=== PATIENT | male | born 1955 | race Caucasian/White ===

== ENCOUNTER → 2024-07-31 07:31 | Outpatient (REF) | payer MEDICARE, OTHER, SELFPAY | LOC: MRI 07:31 | PROVIDERS: ATTENDING PHYSICIAN Orthopaedic Surgery; FAMILY PHYSICIAN Family Medicine; REFERRING PHYSICIAN Specialist | DX: M54.12 Radiculopathy, cervical region (principal) | CPT/HCPCS: 72141 ==

== ENCOUNTER 2025-01-04 21:09 | Inpatient (IN) | payer MEDICARE, OTHER, SELFPAY ==
[2025-01-04 17:26] VITALS: BP 121/59
[2025-01-04 17:26] LABS: Glucose - Point of Care 101 mg/dl (70-99)
[2025-01-04 17:59] LABS: % Basophils 0.2 % (0-2); % Eosinophils 1.3 % (0-6); % Immature Granulocytes 0.7 % (0-0.5); % Monocytes 11.2 % (1.7-9.3); % Neutrophils 61.6 % (42.2-75.2); Absolute Eosinophils 0.1 10^3/uL (0-0.7); Absolute Lymphocytes 1.4 10^3/uL (1.2-3.4); Absolute Monocytes 0.6 10^3/uL (0.1-0.6); Absolute Neutrophils 3.4 10^3/uL (1.4-6.5); Hematocrit 39.8 % (39.0-52.0); Hemoglobin 13.1 g/dL (13.0-18.0); Mean Corp Hgb Conc. 32.9 g/dL (33.0-37.0); Mean Corpuscular Hgb 29.4 pg (27.0-31.0); Mean Corpuscular Volume 89.4 fL (80.0-94.0); Mean Platelet Volume 8.9 fL (7.4-10.4); Nucleated Red Blood Cells % 0 % (-); Platelet Count 128 10^3/uL (130-400); Red Blood Cell Count 4.45 10^6/uL (4.70-6.10); Red Cell Dist. Width 16.2 % (11.5-14.5); White Blood Cell Count 5.6 10^3/uL (4.8-10.8)
[2025-01-04 18:06] VITALS: BMI 24.2
[2025-01-04 18:09] LABS: Lactic Acid 1.3 mmol/L (0.7-2.0)
[2025-01-04 18:29] LABS: ALT (SGPT) 33 U/L (0-50); AST (SGOT) 42 U/L (17-59); Albumin 3.2 g/dl (3.5-5.0); Alkaline Phosphatase 74 U/L (38-126); Blood Urea Nitrogen 12 mg/dl (9-20); Calcium 7.3 mg/dl (8.4-10.2); Carbon Dioxide 21 mmol/L (22-30); Chloride 101 mmol/L (98-107); Estimated Creatinine Clearance 100 ml/min; Glucose 105 mg/dl (70-99); Lipase 25 U/L (23-300); Potassium 3.3 mmol/L (3.5-5.1); Sodium 131 mmol/L (135-145); Total Protein 6.2 g/dl (6.3-8.2); eGFR > 60.00
[2025-01-04 18:43] LABS: COVID-19 Antigen Negative (Negative)
[2025-01-04 19:00] VITALS: BP 134/67
--- NOTE | 2025-01-04 19:55 | ED.GENMED ---
History of Present Illness
General
Chief Complaint: Change in Mental Status
Time Seen by Provider: 01/04/25 19:08
History of Present Illness
History of Present Illness:
69-year-old male with history of peripheral artery disease, lupus, hypertension, hyperlipidemia presenting for fatigue and cough. Patient arrives with who reports since yesterday he has been fatigued, somnolent. He has been refusing to eat.
Patient is nonambulatory, has bilateral rqpiu-[id number]-akzk amputations. has been trying to get him to eat and drink, however he has not been able to do so. He is falling asleep. Reports generalized fevers and chills. Also reports cough. No
report of any vomiting. Denies any changes in stool. Denies any abdominal pain. He did not have his flu vaccine this year. Denies any additional acute medical complaints
Past History
Past History
ED Past Medical History: CAD, HTN, Hypercholesterolemia and Other (Lupus, PBH)
ED Past Surgical History: Cardiac (stents) and Orthopedic (RBKA)
Social History
Tobacco: Non-smoker
Alcohol: None
Drug: None
Personal:
Living: with family
Employment: Not employed
Family History
Family History: Other (n/c)
Phy Exam
Physical Exam
Physical Exam:
General: Mild dryness to mucous membranes, no acute distress
HEENT: protecting airway
Neck: appears supple
CV: Tachycardia, regular rhythm, no evidence of cyanosis
Resp: No accessory muscle use, no increased work of breathing, rhonchorous breath sounds bilaterally
Abd: No distention
Extremities: Bilateral chronic lenvw-glf-ecee amputations
Neuro: alert, no focal neurologic deficit
: deferred
Rectal: deferred
Psych: Normal affect
Skin: Intact
Course
Orders/Labs/Results
Orders:
Orders
01/04/25 17:28
Electrocardiogram (*1) Urgent
Reason for Study: Fatigue / Weakness
CR Chest - 2 Views Urgent
Comment:
Reason For Exam: cough
01/04/25 17:29
EKG- Treatment ONCE
01/04/25 17:44
COVID-19 Antigen Urgent
Source: Nasal Swab
Complete Blood Count/With Diff Urgent
Comprehensive Metabolic Panel Urgent
Lactic Acid Urgent
Lipase Urgent
Influenza A+B Rapid Molecular Urgent
GUILLERMINA Source: Nasal Swab
Specimen Description:
01/04/25 19:40
0.9% Sodium Chloride 1000 ml [Nss] 1,000 ml IV BOLUS
Abnormal Lab Results
01/04/25 01/04/25
17:24 17:44
RBC 4.45 L 10^6/uL
(4.70-6.10)
MCHC 32.9 L g/dL
(33.0-37.0)
RDW 16.2 H %
(11.5-14.5)
Plt Count 128 L 10^3/uL
(130-400)
Immature Gran % 0.7 H %
(0-0.5)
Monocytes % 11.2 H %
(1.7-9.3)
Sodium 131 L mmol/L
(135-145)
Potassium 3.3 L mmol/L
(3.5-5.1)
Carbon Dioxide 21 L mmol/L
(22-30)
Creatinine 0.6 L mg/dL
(0.7-1.3)
Glucose 105 H mg/dl
(70-99)
Calcium 7.3 L mg/dl
(8.4-10.2)
Total Protein 6.2 L g/dl
(6.3-8.2)
Albumin 3.2 L g/dl
(3.5-5.0)
POC Glucose 101 H mg/dl
(70-99)
01/04/25 17:44
01/04/25 17:44
Vital Signs
Initial and Last Documented VS:
Initial Vital Signs
Temp Pulse Resp BP Pulse Ox
98.2 F 91 16 121/59 98
01/04/25 17:26 01/04/25 17:26 01/04/25 17:26 01/04/25 17:26 01/04/25 17:26
Last Documented Vital Signs
Temp Pulse Resp BP Pulse Ox
98.2 F 101 18 134/67 94
01/04/25 17:26 01/04/25 19:15 01/04/25 19:26 01/04/25 19:00 01/04/25 18:45
MDM/Problems Addressed
MDM/Problems Addressed:
69-year-old male with history of lupus, hypertension, hyperlipidemia presenting to the emergency department for cough, fever, fatigue. Vital signs on arrival are normal.
On exam, patient is in no acute distress, however is very sleepy. On pulmonary exam, no significant respiratory distress, however does have rhonchorous breath sounds bilaterally. Suspect likely pneumonia versus viral syndrome such as influenza.
Patient had screening laboratory analysis and viral swabs prior to my assessment, positive for influenza, again which is consistent with symptoms. Patient is currently protecting airway, not requiring any oxygen support. However, patient is very
fatigued, sleepy. at bedside notes that he gets dehydrated very quickly. Will start an IV fluids. She has concerns about him going home given his present state and mental status. For this reason we will plan to admit for continued
supportive therapy. Patient is unsure of whether or not he wants Tamiflu. Pending x-ray imaging of the chest.
20:00 - Chest x-ray without signs of pneumonia. Again plan for admission for continued monitoring and supportive therapy
*Critical Care Note
Total Time (30-74mins, 75-104mins- exclusive of procedures): Not Applicable
ED Attending Note
-
Portions of this chart may have been created with voice recognition software.� Occasional wrong word or��sound alike� substitutions may have occurred due to the inherent limitations of voice recognition software.
Discharge Plan
Departure
Prescriptions:
No Action
tamsulosin 0.4 MG capsule
0.8 mg PO HS
hydroxychloroquine 200 MG tablet
400 mg PO HS
finasteride 5 MG tablet
5 mg PO HS
zolpidem 5 MG tablet
5 mg PO HS
Patient Comments:
06/01/2023: last filled 05/25/23, 30 tabs for 30 days from [id number]
atorvastatin 80 mg tablet
80 mg PO DAILY
alendronate 70 MG tablet
70 mg PO SCANLON
morphine 30 mg tablet extended release
30 mg PO Q12H
spironolactone 25 mg tablet
25 mg PO DAILY
acyclovir 400 mg tablet
400 mg PO BID
prednisolone acetate 1 % drops,suspension
1 drp RIGHT EYE DAILY
prednisone 10 mg Tablet
15 mg PO DAILY
bisacodyl [Dulcolax (bisacodyl)] 10 mg Suppository
10 mg MN DAILYPRN PRN (Reason: if no bm aftr mom)
Rx Instructions:
06/21/2023, administer 8 hr after mom if no BM
topiramate 100 mg Tablet
75 mg PO HS
Artificial Tears (PF) 0.1-0.3 % [place]
1 drp BOTH EYES TID
naloxone 4 mg/actuation [place],Non-Aerosol
4 mg INTRANASAL Q3M PRN (Reason: opioid overdose)
oxycodone 10 mg tablet
10 mg PO Q6H
gabapentin
1,800 mg PO DAILY
gabapentin
1,200 mg PO HS
warfarin [Coumadin] 2 mg Tablet
2 mg PO HS
enoxaparin [Lovenox] 30 mg/0.3 mL Syringe
SC Q12H
Patient Comments:
Patient started this medication on 09/16/23 in the morning as directed by the faculty member.
Interventions
Interventions:
*Risk Screen - Suicide Last Done: 01/04/25 18:06
*General Assessment Last Done: 01/04/25 18:06
*Neglect/Abuse Screening Last Done: 01/04/25 18:06
*ED COVID-19 Vaccine History Last Done: 01/04/25 18:06
ED- Neurological Assessment Last Done: 01/04/25 19:25
ED- Pulmonary Assessment Last Done: 01/04/25 19:25
Discharge Date and Time
Print Language: BERMUDIAN
[2025-01-04] MEDS: NSS 1000 IV (20:08)
[2025-01-04 20:10] VITALS: BP 118/63
--- NOTE | 2025-01-04 20:19 | HPS.HSE ---
Family Physician
-
Family Physician: Paula White
Chief Complaint
-
Lethargy
History of Present Illness
Patient is a 69 y/o male past medical history of CAD, PAD, A-Fib, HTN, Lupus on chronic prednisone and Chronic Pain Syndrome with opioid dependence who presents with lethargy. History is obtained from patient's at the bedside. Yesterday
patient was very tired which is not his usual. Today he refused to eat, and was having a hard time getting his to drink fluids prompting her to bring him to the emergency department for evaluation. In the emegency department he developed
fever, and subsequently tested positive for Influenza Type A.
Medical History
Past Medical History
Past Medical History: Reports Other
Additional Past Medical History:
Coronary Artery Disease s/p Cardiac Stent
Peripheral Arterial Disease s/p Bilateral AKAs
Paroxysmal Atrial Fibrillation
Essential Hypertension
Hyperlipidemia
Lupus
Chronic Pain Syndrome with Opioid Dependence
BPH
Past Surgical History: Reports Other
Additional Past Surgical History:
Cardiac Stents
Bilateral AKAs
Lumbar Fusion
Social History
Tobacco: Former Smoker (Quit about 30 years ago)
Personal:
Living: With Family
Family History
Family History: Not pertinent
Allergies / Home Medications
Allergies reflects when Allergies were last updated in [facility].
Home Medications with original date entered in [facility]
Allergy/Medication List:
Allergies
Allergy/AdvReac Type Severity Reaction Status Date / Time
No Known Allergies Allergy Verified 01/04/25 17:28
Home Medications
finasteride 5 mg tablet 5 mg PO HS Urinary issue 05/02/22
hydroxychloroquine 200 mg tablet 200 mg PO HS Lupus 05/02/22
tamsulosin 0.4 mg capsule 0.8 mg PO HS Urinary issue 05/02/22
zolpidem 5 mg tablet 5 mg PO HS Sleep 07/31/22
alendronate 70 mg tablet 70 mg PO SCANLON osteoporosis 12/20/22
atorvastatin 80 mg tablet 80 mg PO DAILY High cholesterol 12/20/22
morphine 30 mg tablet,extended release 30 mg PO Q12H Pain 12/20/22
spironolactone 25 mg tablet 25 mg PO DAILY Blood pressure 03/04/23
oxycodone 10 mg tablet 10 mg PO Q4H 06/21/23
gabapentin 600 mg tablet 1,200 mg PO HS 09/20/23
gabapentin 600 mg tablet 1,800 mg PO DAILY 09/20/23
warfarin 2 mg tablet 2 mg PO HS 09/20/23
prednisone 5 mg tablet 15 mg PO DAILY 01/04/25
topiramate 50 mg tablet 75 mg PO HS 01/04/25
Review of Systems
-
Unable to obtain full review of systems at this time due to: Acuity
Physical Exam
Vital Signs
Vital Signs
Temp Pulse Resp BP Pulse Ox
98.2 F 101 18 134/67 94
01/04/25 17:26 01/04/25 19:15 01/04/25 19:26 01/04/25 19:00 01/04/25 18:45
Physical Exam
General: Well Developed and Well Nourished
HEENT: Anicteric and Other (Face mask covering nose and mouth)
Respiratory: Clear and Non Labored Respirations
Cardiac: S1/S2 and Regular Rhythm
GI: Soft and Non Tender
Rectal: Deferred by Provider
Musculoskeletal: No Clubbing, No Cyanosis and Other (Bilateral AKAs)
Skin: Warm and Dry
Neuro: Other (Lethargic; Opens eyes to name but unable to participate in neurologic evaluation)
Laboratory Results
-
01/04/25 17:44
01/04/25 17:44
Laboratory Results
Lactic Acid 1.3 mmol/L (0.7-2.0) 01/04/25 17:44
Total Bilirubin 1.0 mg/dl (0.2-1.3) 01/04/25 17:44
AST 42 U/L (17-59) 01/04/25 17:44
ALT 33 U/L (0-50) 01/04/25 17:44
Alkaline Phosphatase 74 U/L (38-126) 01/04/25 17:44
Lipase 25 U/L (23-300) 01/04/25 17:44
Data Reviewed
-
Lab Data: Labs Reviewed by me
Impression/Plan
-
Sepsis secondary to Influenza Type A
-Continue Tamiflu
-Add Robitussin DM PRN cough
-Add DuoNeb PRN shortness of breath / wheeze
Hyponatremia / Hypokalemia
-Continue IVFs
-Recheck Labs in AM
Paroxysmal Atrial Fibrillation
-Check INR
-Continue Coumadin
Essential Hypertension
-Continue spironolactone
Hyperlipidemia
-Continue atorvastatin
Chronic Pain Syndrome with Opioid Dependence
-Plan to resume morphine tomorrow but hold for sedation
-Continue gabapentin, and topiramate
Lupus
-Continue hydroxychloroquine
-Continue Prednisone - Consider stress steroids if patient develops hypotension
BPH
-Continue finasteride
Hx Coronary Artery Disease s/p Cardiac Stent
Hx Peripheral Arterial Disease s/p Bilateral AKAs
DVT proph: Coumadin
Code Status: Full Code
[2025-01-04 21:00] VITALS: BP 109/50
--- NOTE | 2025-01-04 21:34 | W.PN.UPDATE ---
Update Note
Progress Note Update
Patient seen in conjunction with ROMAN. I agree with her findings on history and physical. I concur with the assessment and plan.
This is a 69-year-old with past medical history of lupus on prednisone and Plaquenil, history of BKA with chronic pain on high-dose standing gabapentin and opioids, BPH, afib, HTN, presents to the emergency department with weakness.
Patient quite weak and unable to provide much history. According to spouse he was in usual state of health up until yesterday morning. He woke up and he had nasal congestion and a cough. No fevers. Is then developed weakness and decreased
appetite. Spouse reported that he has not had anything to eat today. Denies any urinary symptoms. Denies any nausea or vomiting. Denies any diarrhea. No known sick contacts. Patient denies any urinary retention. He reports chronic lower
back/sacral pain associated with the development ulcer. There has been no new rash, joint swelling or decreased range of motion.
In the emergency department he had a temp 100.4, blood pressure was 134/67 with a pulse of 101. ECG showed a normal sinus rhythm at 92. Chest x-ray shows no clear acute infiltrates but cannot rule out atelectasis in the lower lobes. CBC was
unremarkable. Electrolytes are notable for a sodium of 131 potassium of 3.3. BUN and creatinine were within the normal range. Influenza was positive. COVID was negative.
Assessment and plan
Patient with acute influenza A infection with lethargy weakness and no significant respiratory issues at this time except for some URI symptoms. The lethargy is compounded by is use of high dose opioids and gabapentin. He is arousable and responds
somewhat appropriately but mostly complains of pain in his sacral region as well as his wrist where the IV was placed.
- admit to med/surg
- start tamiflu 75 q 12, no indication for abx at this time
- iv fluids, supportive measures with antipyretics, antiemetics and pain control
- hold standing morphine and gabapentin tonight and restart in am
- put oxycodone as prn for now
- continue topiramate
- wound consult
- continue coumadin for afib
Code status - full code
[2025-01-04] MEDS: TYLENOL 650 MG PO (21:40)
[2025-01-04] MEDS: TAMIFLU 75 MG PO (21:40)
[2025-01-04 22:00] VITALS: BP 105/46
[2025-01-04 22:10] LABS: INR 1.85; PT 21.5 Sec (11.4-14.6)
[2025-01-04 22:48] VITALS: BP 112/67; BMI 23.5
[2025-01-04 22:58] VITALS: BMI 23.5
[2025-01-04] MEDS: NSS with KCL 40 MEQ 1000 IV (23:10)
[2025-01-04] MEDS: PLAQUENIL 200 MG PO (23:24)
[2025-01-04] MEDS: PROSCAR 5 MG PO (23:24)
[2025-01-04] MEDS: FLOMAX 0.8 MG PO (23:24)
[2025-01-04] MEDS: TOPAMAX 75 MG PO (23:42)
[2025-01-05] VITALS (15 sets, daily range): BP systolic 88–153; BP diastolic 33–131
--- NOTE | 2025-01-05 00:30 | PTCARENOTE ---
Received pt from previous shift visiting with family. Pt AAOxx3, but drowsy. Pt Afib RVR on the monitor, HR 160's. SpO2 98% on 2L O2 NC, tachypneic/labored. Abd round/obese/firm, severely hypoactive bowel sounds. Pt then began vomiting brown liquid,
PRN Zofran given with positive effect, see MAR. Pt continued c/o 06/30 abd pain and anxiety despite previous doses of PRN Ativan/Morphine, next PRN doses not yet due. D/w covering ARCHITECTURAL REPRESENTATIVE, morphine gtt ordered to begin on step 2. Morphine gtt initiated
with positive effect, see flowsheet. Pt incontinent of urine and a smear of stool, hygiene performed. Pt currently resting comfortably, at the bedside.
--- NOTE | 2025-01-05 00:53 | PTCARENOTE ---
Patient arrived to unit from ED via stretcher. Patient pulled over from stretcher to bed in 319-1 on . B/L AKA noted, uses w/c at baseline. Patient AAOx3, drowsy. at bedside to help answer admission questions. Maintained on droplet
precautions for +flu A. Patient and requesting HS dose of Topamax and Gabapentin. ROMAN Deluna notified. New order rec'd for Topamax. See MAR for administration. Oriented to unit. Call copeland within reach. Plan of care ongoing.
[2025-01-05] MEDS: ZOFRAN 4 MG IV ×3 (02:51→22:14)
[2025-01-05] MEDS: LOPRESSOR 5 MG IV (03:54)
[2025-01-05] MEDS: LOPRESSOR 2.5 MG IV (05:31)
[2025-01-05] MEDS: CARDIZEM 10 MG IV ×2 (06:46→13:00)
[2025-01-05] MEDS: CARDIZEM 125 IV (06:52)
--- NOTE | 2025-01-05 06:56 | W.PN.UPDATE ---
Addendum entered and electronically signed by ROMAN Avina 01/05/25 07:09:
Update: Inidial TT received approx 3:30 am regarding pt going into afib w/rvr.
Original Note:
Update Note
Progress Note Update
Around 2:30 am, patient went into afib w/RVR, HR initially 120-130's, up to 170's. Ordered Metoprolol 5 mg IV x 1, HR did go down to 80-100's but was not sustained and increased back to 130-140's, then to 170's. BP soft, gave another dose of
metoprolol. Patient HR increased again back to 170's to 190's. Patient unsure who he sees for cardiology. Patient ordered Cardizem 10 mg IV x 1 and started on Cardizem gtt. Patient to be transferred to IMU, nursing supervisor putty and caluking notified and provided
bed assignment for IMU. RN updated on plan.
--- NOTE | 2025-01-05 07:52 | PTCARENOTE ---
Around 03:20 telemetry alarmed, patient in a-fib with HR sustaining 130s-150s. BP 125/72, afebrile, asymptomatic. ROMAN Deluna notified. EKG obtained and confirmed a-fib RVR. New order rec'd for 5 mg IV lopressor. See MAR for administration.
Patient's HR sustaining between 80s-100s. HR increased again around 05:00 sustaining between 130s-140s. Pt. continues to be asymptomatic and afebrile. BP 106/50. ROMAN Deluna notified. New order rec'd for 2.5 mg IV lopressor. Administered at
05:31. Soon after administration, HR 110's. Around 0605 HR [id number]'s-150's. ROMAN Deluna notified. New order for cardizem gtt and transfer to IMU. Report given to Edwin. Patient transferred with all belongings to IMU.
--- NOTE | 2025-01-05 08:14 | PTCARENOTE ---
Pt from 3 west hr 168-188 rr 30-45 3l O2 pox 88. Cardizem increased now at 15 mg hr 140 -167 O2 to 6 l pox at 93 % lungs are coarse with crackles. Seen by by DR pennington. Prt inont B/B
--- NOTE | 2025-01-05 08:14 | CON.CAR ---
Consultation
Consultation Request
Date/Time Consultation Requested: 01/05/2025 6: 55
Date/Time Consultation Performed: 01/05/2025 7: 45
Requesting Provider: Newton
Performing Provider: Elizabeth
Reason for Consultation: Atrial fibrillation
Medical History
-
Chief Complaint: Weakness and not eating
History of Present Illness:
Jenny has a history of OM1 and RCA stent, status post CABG with SILVA to LAD, aortic stenosis, peripheral vascular disease status post bilateral amputations, hypertension, lupus, hyperlipidemia, chronic pain syndrome with opioid dependence, BPH. He
presented with cough, lethargy and not eating. He was found to have influenza A. He went into rapid A-fib and cardiology was consulted. At the present time he is a poor historian unable to give history. History is obtained from his . At
baseline he is fairly active despite his bilateral amputations without chest pain or shortness of breath. He last saw his spooler operator automatic Dr. Rosales in 2022 and was scheduled to have an echocardiogram and stress test which still have not been done.
Reportedly he went to have a stress test but what they wanted that to be done at the hospital so was canceled. He remains in A-fib with rapid rate despite IV Cardizem.
Past Medical History
Past Medical History: Other (As above)
Past Surgical History: Other (Status post CABG, lumbar fusion)
Social History
Tobacco: Former Smoker
Alcohol: None
Drug: None
Personal:
Living: With Family
Employment: Retired
Family History
Family History: Other (Father had bypass surgery, pacer, lupus, mother had hypertension)
Allergies / Home Medications
Allergy/AdvReac Type Severity Reaction Status Date / Time
No Known Allergies Allergy Verified 01/04/25 17:28
�Medication �Instructions �Recorded �Confirmed �Type
finasteride 5 mg tablet 5 mg PO HS Urinary issue 05/02/22 01/04/25 History
hydroxychloroquine 200 mg tablet 200 mg PO HS Lupus 05/02/22 01/04/25 History
tamsulosin 0.4 mg capsule 0.8 mg PO HS Urinary issue 05/02/22 01/04/25 History
zolpidem 5 mg tablet 5 mg PO HS Sleep 07/31/22 01/04/25 History
alendronate 70 mg tablet 70 mg PO SCANLON osteoporosis 12/20/22 01/04/25 History
atorvastatin 80 mg tablet 80 mg PO DAILY High cholesterol 12/20/22 01/04/25 History
morphine 30 mg tablet,extended 30 mg PO Q12H Pain 12/20/22 01/04/25 History
release
spironolactone 25 mg tablet 25 mg PO DAILY Blood pressure 03/04/23 01/04/25 History
oxycodone 10 mg tablet 10 mg PO Q4H 06/21/23 01/04/25 History
gabapentin 600 mg tablet 1,200 mg PO HS 09/20/23 01/04/25 History
gabapentin 600 mg tablet 1,800 mg PO DAILY 09/20/23 01/04/25 History
warfarin 2 mg tablet 2 mg PO HS 09/20/23 01/04/25 History
prednisone 5 mg tablet 15 mg PO DAILY 01/04/25 01/04/25 History
topiramate 50 mg tablet 75 mg PO HS 01/04/25 01/04/25 History
Review of Systems
-
Unable to obtain full review of systems at this time due to: Patient Non Verbal
History Source: Family
All other systems: Negative unless noted
Constitutional: Fatigue
EENT: No Symptoms
Respiratory: Cough
Cardiac: No Symptoms
Abdomen/GI: No Symptoms
: No Symptoms
Musculoskeletal: No Symptoms
Skin: No Symptoms
Neurological: No Symptoms
Endocrine: No Symptoms
Hematologic/Lymphatic: No Symptoms
Physical Exam
Vital Signs
Temp Pulse Resp BP Pulse Ox
98.4 F 82 15 125/58 92
01/05/25 07:15 01/05/25 07:15 01/05/25 07:15 01/05/25 07:15 01/05/25 07:15
General: Appears sick
Neck: Supple, no JVD, HJR, carotids +2 B/L, no bruits bilaterally.
Heart: Non displaced PMI, irregular, tachycardic, no murmurs, No S3, S4, no rubs.
Lungs: Scattered rhonchi
Abdomen: Stented,? Tenderness throughout
Extremities: No clubbing, cyanosis or edema bilaterally.
Neuro: Unable to respond to questions, moves all extremities
Impression / Plan
-
Primary spooler operator automatic Dr. Fuad Rosales ( [place])
Impression:
Rapid atrial fibrillation
Influenza A
History of CAD status post OM1 and RCA stent
History of CABG with SILVA to LAD
History of reported aortic stenosis although no aortic stenosis noted at time of catheterization in 2019, noncompliant with getting repeat echocardiogram and stress test
History of lupus
Hypertension
Peripheral arterial disease status post bilateral AKA's
hyperlipidemia
chronic pain syndrome with opioid dependence
BPH
Hyponatremia
Hypokalemia
Cardiac catheterization April 2019: 100% proximal LAD after the takeoff of first diagonal branch, patent SILVA to LAD, nonobstructive disease within the left circumflex system including a proximal OM stent which is patent with minimal restenosis, 60%
mid right coronary artery in-stent restenosis status post FFR which was negative at 0.91, no evidence of significant aortic stenosis with peak to peak gradient of 2 mmHg and mean gradient of 4 mmHg and Aortic valve area 3.2 cm�
Plan:
Will attempt to control A-fib rate with IV Cardizem. If becomes hypotensive may need to switch to IV amiodarone
reports that he goes in and out of A-fib at home is on chronic Coumadin, of note he was in sinus rhythm on admission
Check echocardiogram as there were reports of severe aortic stenosis in the past but catheterization 2018 did not reveal any aortic stenosis
INR is 1.85. May need to start IV heparin pending results of repeat INR
Continue to treat for influenza
Discussed with nursing as well as patient's in detail by phone
Data Reviewed
-
EKG: Tracing Personally Visualized and interpreted
Radiology: Report Reviewed by me
Medical Tests (Nuc Med, Echo etc): Report Reviewed by me
Labs: Labs Reviewed by me
Old Records: Reviewed
--- NOTE | 2025-01-05 08:27 | PTCARENOTE ---
Dr Johnson tt hr continues to be high want to give Cardixx=zem a chance
[2025-01-05] MEDS: LIPITOR 80 MG PO (09:11)
[2025-01-05] MEDS: DELTASONE 15 MG PO (09:12)
[2025-01-05 09:34] LABS: INR 1.99; PT 22.7 Sec (11.4-14.6)
[2025-01-05] MEDS: ROCEPHIN 1000 MG IV (09:39)
[2025-01-05] MEDS: STERILE WATER FOR INJECTION 10 ML IV (09:39)
[2025-01-05] MEDS: CORDARONE 103 MG IV (09:44)
[2025-01-05 09:54] LABS: Hematocrit 46.1 % (39.0-52.0); Hemoglobin 15.4 g/dL (13.0-18.0); Mean Corp Hgb Conc. 33.4 g/dL (33.0-37.0); Mean Corpuscular Hgb 29.4 pg (27.0-31.0); Mean Corpuscular Volume 88.1 fL (80.0-94.0); Mean Platelet Volume 9.1 fL (7.4-10.4); Platelet Count 150 10^3/uL (130-400); Red Blood Cell Count 5.23 10^6/uL (4.70-6.10); Red Cell Dist. Width 16.3 % (11.5-14.5); White Blood Cell Count 15.3 10^3/uL (4.8-10.8)
[2025-01-05 10:16] LABS: NT-proBNP 3740 pg/ml
[2025-01-05] MEDS: CORDARONE 518 MG IV (10:17)
--- NOTE | 2025-01-05 10:38 | PTCARENOTE ---
Dr Watters in earlier ordered Amio which is now infusing, Iv team to put mid line in. hyper focused on steroid. Tried to give po meds pt unable to take PO. Pt is confused and agitated Tachypnic will not leave POX on RR 36-48 . telling pt to
slow down his breathing. Rene Glez made aware of situation and new orders given. confirmed tat pt is a full code.
[2025-01-05] MEDS: SOLU-CORTEF 25 MG IV ×2 (10:47→15:58)
--- NOTE | 2025-01-05 11:17 | PTCARENOTE ---
Labs tt to Edward and Rene Watters. Hr anjelica=eber 142-168 RR 38 -50 . Awaiting midline
--- NOTE | 2025-01-05 11:43 | CON.PUL ---
Consultation
Consultation Request
Date/Time Consultation Requested: 01/05/2025-11:30 AM
Date/Time Consultation Performed: 01/05/2020 5-11 40 5 AM
Requesting Provider: Hospitalist
Performing Provider: Dr. Wright
Reason for Consultation: Influenza/shortness of breath
Medical History
-
Chief Complaint: Shortness of breath
History of Present Illness:
69-year-old former smoking male with a history of hypertension, lupus on chronic prednisone, chronic pain syndrome, CAD, PAD, atrial fibrillation presented with lethargy, anorexia, shortness of breath and found to have influenza-pulmonary consulted
for influenza/shortness of breath 01/05/2025. Patient has significant respiratory distress, has some chest congestion, difficulties mobilizing secretions, no complaints of chest pain, abdominal pain,
Past Medical History
Past Medical History: None (SLE on chronic prednisone. Chronic pain syndrome/opiate dependence. BPH. PAF. CAD/stent. PAD/bilateral AKA's. Hypertension. Hyperlipidemia. Former smoker. Lumbar fusion.)
Social History
Tobacco: Former Smoker ( Quit 30 years ago)
Personal:
Living: With Family
Occupational Exposures: No known asbestos exposure
Environmental Exposures: No known tuberculosis exposure
Family History
Family History: Reviewed & Not Pertinent
Allergies / Home Medications
Allergies
Allergy/AdvReac Type Severity Reaction Status Date / Time
No Known Allergies Allergy Verified 01/04/25 17:28
Home Medications
�Medication �Instructions �Recorded �Confirmed �Last Taken �Type
finasteride 5 mg tablet 5 mg PO HS Urinary issue 05/02/22 01/04/25 09/19/23 20:00 History
hydroxychloroquine 200 mg tablet 200 mg PO HS Lupus 05/02/22 01/04/25 09/19/23 20:00 History
tamsulosin 0.4 mg capsule 0.8 mg PO HS Urinary issue 05/02/22 01/04/25 09/19/23 20:00 History
zolpidem 5 mg tablet 5 mg PO HS Sleep 07/31/22 01/04/25 09/19/23 20:00 History
alendronate 70 mg tablet 70 mg PO SCANLON osteoporosis 12/20/22 01/04/25 09/18/23 History
atorvastatin 80 mg tablet 80 mg PO DAILY High cholesterol 12/20/22 01/04/25 09/20/23 06:30 History
morphine 30 mg tablet,extended 30 mg PO Q12H Pain 12/20/22 01/04/25 09/20/23 06:30 History
release
spironolactone 25 mg tablet 25 mg PO DAILY Blood pressure 03/04/23 01/04/25 09/19/23 07:00 History
oxycodone 10 mg tablet 10 mg PO Q4H 06/21/23 01/04/25 09/20/23 06:30 History
gabapentin 600 mg tablet 1,200 mg PO HS 09/20/23 01/04/25 09/19/23 20:00 History
gabapentin 600 mg tablet 1,800 mg PO DAILY 09/20/23 01/04/25 09/20/23 06:30 History
warfarin 2 mg tablet 2 mg PO HS 09/20/23 01/04/25 09/14/23 20:00 History
prednisone 5 mg tablet 15 mg PO DAILY 01/04/25 01/04/25 Unknown History
topiramate 50 mg tablet 75 mg PO HS 01/04/25 01/04/25 Unknown History
Review of Systems
-
Unable to Obtain full review of systems at this time due to: Other (Per HPI)
Vitals / Labs / Diagnostic Testing
Vital Signs
Temp Pulse Resp BP Pulse Ox
98.4 F 151 60 139/127 94
01/05/25 07:15 01/05/25 11:15 01/05/25 11:15 01/05/25 11:14 01/05/25 10:15
Lab Data
01/05/25 09:04
Laboratory Results
01/04/25 01/05/25
21:44 09:04
PT 21.5 H 22.7 H
INR 1.85 1.99
Microbiology
01/04/25 17:44 Nasal Swab Influenza Types A & B (EAMON) - Final
Influenza A Positive, NAAT
Diagnostic Testing:
Physical Exam
-
Exam:
Well-nourished and well-developed in no apparent distress
HEENT-atraumatic, normocephalic
Neck-supple, no JVD, no bruit
Heart-regular rate and rhythm-no murmurs, rubs or gallops
Chest with diminished breath sounds, crackles, rhonchi and no wheezes
Back without tenderness
Abdomen-soft, nontender, nondistended, no hepatosplenomegaly
Extremities-no cyanosis, clubbing, edema and good peripheral pulses
Integument-intact, no rashes, lesions or ecchymosis
Neurology-alert and oriented, nonfocal motor and sensory exam
Assessment
-
69-year-old former smoking male with a history of hypertension, lupus on chronic prednisone, chronic pain syndrome, CAD, PAD, atrial fibrillation presented with lethargy, anorexia, shortness of breath and found to have influenza-pulmonary consulted
for influenza/shortness of breath 01/05/2025.
Sepsis
Hypoxemic respiratory failure
Influenza A
Leukocytosis
Mild hyperglycemia
Mild hyponatremia
Hypokalemia
Mildly elevated troponin 0.14
Conditions present prior to admission:
SLE on chronic prednisone.
Chronic pain syndrome/opiate dependence.
BPH.
PAF.
CAD/stent.
PAD/bilateral AKA's.
Hypertension.
Hyperlipidemia.
Former smoker.
Lumbar fusion.
Plan
Respiratory decompensation likely due to influenza and probable community-acquired pneumonia-deteriorating and if remains full code critical and likely will need to be transferred to intensive care
Supplemental oxygen as needed
High flow oxygen if needed
Noninvasive ventilation if deteriorates-May require transfer to ICU level of care
Intubated mechanically ventilated if needed-reportedly continues to be a full code-spoke to nursing who spoke to patient's
Mucolytic's
Incentive spirometry
Continue prednisone 15 mg daily for underlying SLE-consider intravenous high-dose steroids if deteriorates
Check cultures
Empiric antibiotics-ceftriaxone and doxycycline
Tamiflu 75 mg twice daily
Adjust antibiotics according to cultures
Follow leukocytosis
Morphine as needed for chronic pain
Prednisone 15 mg daily and Plaquenil continues for lupus
Monitor rhythm
Amiodarone continues
DVT prophylaxis-on warfarin-follow INR
Nutrition
Early mobilization
Outpatient pulmonary follow-up to ensure pneumonia clearing
Reviewed with primary team and nursing
Critical care statement: A total of 40 minutes of critical care time was provided for this patient today. This includes management of unstable vital signs, evaluation of the patient at bedside, reviewing the patient's pertinent medical records
including radiographs, microbiology, laboratory evaluations, and discussion with primary team, consultants, pharmacy, nutrition, physical therapy, case management, charge nurse, critical care nursing, and respiratory therapy.
Diagnostic data:
Chest x-ray 03/04/2023-bibasilar pneumonia
Chest x-ray 06/15/2023-no pneumothorax, no superimposed pneumonia or CHF
Chest x-ray 01/04/2025-mild posterior left lower lobe pneumonia
Left upper extremity ultrasound 06/09/2023-no evidence for DVT of the left upper extremity
Data Reviewed
-
EKG: Report reviewed by me
Radiology: Report reviewed by me
CT Scan: Report reviewed by me
Ultrasound: Report reviewed by me
Labs: Labs reviewed by me and Discussed with Physician
Old Records: Reviewed
Total Time Spent with Patient (in minutes): 65
--- NOTE | 2025-01-05 11:46 | PTCARENOTE ---
Pt now getting midline placed
--- NOTE | 2025-01-05 12:47 | PTCARENOTE ---
Pt continues with Hr 188-136 rr 50-44 IV team placing PICC l arm. O2 to 15 l mid flow, pt working hard with breathing . R arm looks more purple and swollen than earlier . Pt h as good blood return and pink nail beds. Cardizem and amio running in
peripheral IV site on R . HR has come down to 145 at this time
--- NOTE | 2025-01-05 13:20 | PTCARENOTE ---
Pt told and sister he was done he wanyed no more treatment . DR Glez TT with info wants to continue tretment until his children get here to see him one more time.
[2025-01-05 13:55] LABS: Blood Urea Nitrogen 14 mg/dl (9-20); Carbon Dioxide 14 mmol/L (22-30); Chloride 104 mmol/L (98-107); Estimated Creatinine Clearance 100 ml/min; Glucose 134 mg/dl (70-99); Potassium 3.6 mmol/L (3.5-5.1); Sodium 133 mmol/L (135-145); eGFR > 60.00
--- NOTE | 2025-01-05 13:58 | PTCARENOTE ---
was here familyt starting to come in to see pt.
--- NOTE | 2025-01-05 14:00 | W.PN.HOSP.TC ---
Today's Communication/Plan
-
see outlined plan
noted DNR/DNI now per family - will update orders
Assessment / Plan
Assessment / Plan
Assessment:
Acute hypoxemic respiratory failure related to acute influenza A infection and LLL Community acquired pneumonia
- currently on 15L NC
- monitor O2, may need Hi-Cornelio or BIPAP next
Sepsis POA (fever, tachycardia on admission, now leukocytosis)
acute influenza A infection and LLL Community acquired pneumonia
- continue IVF
- continue stress dose steroids
- continue Tamiflu, day 1
- continue Rocephin, Doxy day 1. Check blood, sputum cultures. check MRSA.
Parox Afib with RVR
- continue IV Amiodarone, IV Cardizem drips
- continue Coumadin; monitor INRs. IV heparin if INR drops
- Echo Tuesday
- DCA Cards following
Hyponatremia
Hypokalemia
- monitor BMP
Nonischemic myocardial injury
- initial trop 0.14; repeat pending
acute Thrombocytopenia
- monitor plts
SLE on chronic prednisone
- continue stress dose steroids; holding PO steroids
- continue Plaquenil
Chronic pain syndrome/opiate dependence
- IV Morphine
- on chronic PO Morphine, Oxycodone and Gabapentin
BPH
- bladder scans
- straight caths prn
- continue Finasteride
CAD/stent
PAD/bilateral AKA
- holding Statin
Essential Hypertension
- hold Aldactone
Hyperlipidemia
Former smoker
DVT ppx: Coumadin
Code: DNR/DNI per family.
Anticipated Discharge: > 48 hours
Subjective/Interval History
-
Date of Service: January 05, 2025
remains in Rapid Afib and on mid-flow
receiving PICC line placement
Objective Data
-
Labs:
Laboratory Results
01/05/25 01/05/25
09:04 13:05
WBC 15.3 H
Hgb 15.4
Hct 46.1
Plt Count 150
PT 22.7 H
INR 1.99
Sodium Cancelled 133 L
Potassium Cancelled 3.6
Chloride Cancelled 104
Carbon Dioxide Cancelled 14 L*
BUN Cancelled 14
Creatinine Cancelled 0.6 L
Glucose Cancelled 134 H
Calcium Cancelled 7.0 L
Vital Signs:
Vital Signs
Temp Pulse Resp BP Pulse Ox
99.2 F 144 18 159/76 94
01/05/25 13:03 01/05/25 13:45 01/05/25 13:45 01/05/25 13:00 01/05/25 13:15
Physical Exam
-
General: Respiratory Distress
HEENT: Normocephalic and Atraumatic
Respiratory: Rhonchi, Crackles and Decreased Breath Sounds
Cardiac: Irregular Rhythm and Tachycardic
GI: Soft and Nontender
Neuro: AO x 3
Data Reviewed
-
Total Time Spent with Patient (in minutes): 47
Labs: Labs Reviewed by me
[2025-01-05] MEDS: VIBRAMYCIN 260 MG IV (14:51)
--- NOTE | 2025-01-05 15:31 | CON.ID ---
Consultation
-
Date/Time Consultation Requested: 01/05/2025 1014
Date/Time Consultation Performed: 01/05/2025 1528
Requesting Provider: Dr. Glez
Performing Provider: Dr. Chua
Reason for Consultation: Clinical sepsis
Chief Complaint / Past History
Chief Complaint
Jenny Rao is a 69-year-old man being evaluated at the request of Dr. Glez regarding influenza A. History is obtained from chart review.
The patient has a significant past medical history of lupus; on chronic prednisone, along with chronic pain syndrome and opioid dependence. The patient presented to the emergency room yesterday following the development of significant fatigue.
Yesterday he was noted to be quite tired, with refusal to eat. Additionally, he had poor p.o. intake per his and he was brought to the emergency room for further evaluation. In the ER he was found to be febrile and tested positive for
influenza A.
Overnight, he has developed atrial fibrillation. Additionally his O2 requirements have markedly increased and he is now on high flow O2.
He did not receive the flu vaccine this year.
History of Present Illness
Jenny Rao is a 69-year-old man being evaluated at the request of Dr. Glez regarding influenza A. History is obtained from chart review.
The patient has a significant past medical history of lupus; on chronic prednisone, along with chronic pain syndrome and opioid dependence. The patient presented to the emergency room yesterday following the development of significant fatigue.
Yesterday he was noted to be quite tired, with refusal to eat. Additionally, he had poor p.o. intake per his and he was brought to the emergency room for further evaluation. In the ER he was found to be febrile and tested positive for
influenza A.
Past History
Additional Past Medical History:
CAD
Lupus (on 15 mg prednisone/day)
HTN
Dyslipidemia
BPH
Additional Past Surgical History:
PTCA with stenting
B/L AKA
Allergy History:
No Known Allergies Allergy (Verified 01/04/25 17:28)
Medications Reviewed: Yes
Current Antibiotics:
Ceftriaxone 1 g IV every 24 hours
Doxycycline 100 mg IV every 12 hours
Tamiflu 75 mg p.o. twice daily
Social History
Tobacco: Former Smoker
Alcohol: None
Drug: None
Personal:
Living: With Family
Employment: Retired
Family History
Family History: Not Pertinent
Review of Systems
Vital Signs
Temp Pulse Resp BP Pulse Ox
99.2 F 144 18 159/76 94
01/05/25 13:03 01/05/25 13:45 01/05/25 13:45 01/05/25 13:00 01/05/25 13:15
Physical Exam
Physical Exam
Constitutional: Acutely Ill and Chronically Ill
Head: Normocephalic
Eyes: No Conjunctival Hemorrhage and Sclera Anicteric
Oral: No Thrush and No Ulcers
Cardiovascular: S1/S2 and Other (tachy); Negative S3/S4 or Murmur
Pulmonary: Coarse and Other (Labored); Negative Wheezes
Gastrointestinal: Soft, Non Tender, Non Distended, Normal Bowel Sounds and No Rebound
Genito-Urinary: Negative Gutierrez
Extremities: Other (Bilateral lower extremity AKA)
Skin: Warm and Dry; Negative Rash or Jaundice
Neurological: Other (Arousable but lethargic)
Lines: PICC
.
Lab / Diagnostic Study Results
01/05/25 09:04
01/05/25 13:05
Abs Immat Gran (auto) 0.0 10^3/uL (0-0.05) 01/04/25 17:44
Absolute Neuts (auto) 3.4 10^3/uL (1.4-6.5) 01/04/25 17:44
Absolute Lymphs (auto) 1.4 10^3/uL (1.2-3.4) 01/04/25 17:44
Absolute Monos (auto) 0.6 10^3/uL (0.1-0.6) 01/04/25 17:44
Absolute Basos (auto) 0.0 10^3/uL (0-0.2) 01/04/25 17:44
Immature Gran % 0.7 % (0-0.5) H 01/04/25 17:44
Neutrophils % 61.6 % (42.2-75.2) 01/04/25 17:44
Lymphocytes % 25.0 % (20.5-51.1) 01/04/25 17:44
Monocytes % 11.2 % (1.7-9.3) H 01/04/25 17:44
Eosinophils % 1.3 % (0-6) 01/04/25 17:44
Basophils % 0.2 % (0-2) 01/04/25 17:44
PT 22.7 Sec (11.4-14.6) H 01/05/25 09:04
INR 1.99 01/05/25 09:04
Lactic Acid 1.3 mmol/L (0.7-2.0) 01/04/25 17:44
Microbiology Results
Micro:
01/05/25 13:05 Blood Culture - Pending
Blood/Venous
01/05/25 13:05 MRSA Screen - Pending
Nose
01/05/25 11:23 Blood Culture - Pending
Blood/Venous
01/04/25 17:44 Influenza Types A & B ([facility]) - Final
Nasal Swab Influenza A Positive, NAAT
Imaging:
01/05/2025 CXR (2 view): Increased interstitial opacity demonstrated the posterior left lung base. Cardiomediastinal margins are stable. Prominence of the cardiac margins demonstrated which may be related to pericardial fat as seen on CT scan from
June 2023. No vascular congestion persist suggest congestive heart failure.
Assessment / Plan
Severe influenza A infection
Pneumonia; possible concomitant bacterial infection
Hypoxemic respiratory failure; on high flow O2
Atrial fibrillation with RVR
Hyponatremia
CAD
Lupus (on 15 mg prednisone/day)
HTN
Dyslipidemia
BPH
Hx PAD and bilateral AKA
Recommendations:
Continue current antibiotics (ceftriaxone; doxycycline). Given difficulty with oral route at present, will maintain IV doxycycline.
Continue oseltamavir in the treatment of Influenza A
Monitor white count and temperature curve.
Follow CXR.
Cardiac rate control as per Cardiology
Wean O2 as possible.
Prognosis guarded.
Care Review
Plan reviewed with: Physician (Pulmonary; Hospitalist)
--- NOTE | 2025-01-05 15:33 | PTCARENOTE ---
Family has decided DNR but no comfort at this time.
--- NOTE | 2025-01-05 15:37 | PTCARENOTE ---
Pt remains on 50 l 100% O2 amidarone and cardizem . Labored breathing
--- NOTE | 2025-01-05 16:00 | PTCARENOTE ---
Pt feeling nauseated given Zofran as ordered
[2025-01-05 16:18] LABS: B.E. -9.8 mmol/L; O2 Saturation % 79.9 % (94-98); PCO2 23 mmHg (35-48); pH 7.37 (7.35-7.45)
[2025-01-05 16:20] LABS: HCO3 13.3 mmol/L (21-28); PO2 46 mmHg (83-108)
--- NOTE | 2025-01-05 17:37 | W.PN.UPDATE ---
Update Note
Progress Note Update
spoke to Hansa - has opted for comfort measures. Comfort protocol initiated. D/w RN
--- NOTE | 2025-01-05 17:54 | PTCARENOTE ---
Pt vomited a large amount of brown fluid and incont of brown fluid with family in the room. After speaking with children states this it we are done. make him comfortable. DR Glez aware new orders written. Mahnaz turned off as ordered. Spoke
with family made them aware of plan. Family at bedside
[2025-01-05] MEDS: MORPHINE SULFATE 2 MG IV ×3 (18:09→21:57)
--- NOTE | 2025-01-05 18:17 | PTCARENOTE ---
Pt now has abd pain given 2 mg of morphine . Family told we would be putting him on a nc to make him more comfortable. One family member brought a small child in the room even though i said it as not a good idea, She said it will be ok. Child had a
mask on . Rsp here to remove HF
[2025-01-05] MEDS: ATIVAN 1 MG IV (20:23)
[2025-01-05] MEDS: NSS (PRESERVATIVE FREE) 0.5 ML IV (20:24)
[2025-01-05] MEDS: MORPHINE 100 IV (22:27)
--- NOTE | 2025-01-06 00:30 | PTCARENOTE ---
Received pt from previous shift visiting with family. Pt AAOxx3, but drowsy. Pt Afib RVR on the monitor, HR 160's. SpO2 98% on 2L O2 NC, tachypneic/labored. Abd round/obese/firm, severely hypoactive bowel sounds. Pt then began vomiting brown liquid,
PRN Zofran given with positive effect, see MAR. Pt continued c/o 06/30 abd pain and anxiety despite previous doses of PRN Ativan/Morphine, next PRN doses not yet due. D/w covering ESTIMATOR BINDING, morphine gtt ordered to begin on step 2. Morphine gtt initiated
with positive effect, see flowsheet. Pt incontinent of urine and a smear of stool, hygiene performed. Pt currently resting comfortably, at the bedside.
[2025-01-06] MEDS: ATIVAN 1 MG IV ×6 (02:32→20:42)
[2025-01-06] MEDS: NSS (PRESERVATIVE FREE) 0.5 ML IV ×5 (02:32→20:44)
[2025-01-06] MEDS: ROBINUL 0.2 MG IV ×4 (02:33→21:16)
[2025-01-06] MEDS: MORPHINE SULFATE 2 MG IV ×5 (07:49→15:26)
--- NOTE | 2025-01-06 07:54 | W.PN.UPDATE ---
Update Note
Progress Note Update
Chart reviewed. Patient transitioned to comfort measures last evening.
Antibiotics discontinued.
Little more to offer from a Infectious Diseases standpoint.
Will see again at your request.
[2025-01-06 08:14] VITALS: BP 105/55
--- NOTE | 2025-01-06 11:40 | PTCARENOTE ---
Assumed care of patient this morning. Pt's and few family members at the bedside. Pt appeared to have end of life dyspnea this morning, medicated with Morphine, see MAR. Pt then appearing restless and medicated with Ativan, see MAR. Pt is
mostly unresponsive with response to painful stimuli. Assessment, care and VS as charted.
--- NOTE | 2025-01-06 12:47 | W.PN.HOSP.TC ---
Today's Communication/Plan
-
continue comfort measures protocol with IV Ativan, IV morphine drip + boluses
2N transfer when able
Assessment / Plan
Assessment / Plan
Assessment:
Patient on Comfort Measures at this time
- continue comfort measures protocol with IV Ativan, IV morphine drip + boluses
Acute hypoxemic respiratory failure related to acute influenza A infection and LLL Community acquired pneumonia
- currently on 15L NC
- monitor O2, may need Hi-Cornelio or BIPAP next
Sepsis POA (fever, tachycardia on admission, now leukocytosis)
acute influenza A infection and LLL Community acquired pneumonia
- continue IVF
- continue stress dose steroids
- continue Tamiflu, day 1
- continue Rocephin, Doxy day 1. Check blood, sputum cultures. check MRSA.
Parox Afib with RVR
- continue IV Amiodarone, IV Cardizem drips
- continue Coumadin; monitor INRs. IV heparin if INR drops
- Echo Tuesday
- DCA Cards following
Hyponatremia
Hypokalemia
- monitor BMP
Nonischemic myocardial injury
- initial trop 0.14; repeat pending
acute Thrombocytopenia
- monitor plts
SLE on chronic prednisone
- continue stress dose steroids; holding PO steroids
- continue Plaquenil
Chronic pain syndrome/opiate dependence
- IV Morphine
- on chronic PO Morphine, Oxycodone and Gabapentin
BPH
- bladder scans
- straight caths prn
- continue Finasteride
CAD/stent
PAD/bilateral AKA
- holding Statin
Essential Hypertension
- hold Aldactone
Hyperlipidemia
Former smoker
DVT ppx: Coumadin
Code: DNR/DNI per family.
Anticipated Discharge: Within 24 hours
Subjective/Interval History
-
Date of Service: January 06, 2025
on comfort measures since last evening
on morphine step 2, has received morphine and Ativan boluses
Objective Data
-
Vital Signs:
Vital Signs
Temp Pulse Resp BP Pulse Ox
99.3 F 90 40 105/55 95
01/06/25 08:14 01/06/25 08:14 01/06/25 08:14 01/06/25 08:14 01/06/25 08:14
Physical Exam
-
General: No Apparent Distress
HEENT: Normocephalic and Atraumatic
Respiratory: Accessory Resp Muscle Use
Cardiac: Regular Rhythm and S1/S2
Neuro: Sedated
Data Reviewed
-
Total Time Spent with Patient (in minutes): 40
--- NOTE | 2025-01-06 14:17 | W.PN.PUL.V3 ---
Today's Communication / Plan
-
Comfort
Morphine drip
Discontinue futile care
Pulmonary will sign off
Assessment
-
69-year-old former smoking male with a history of hypertension, lupus on chronic prednisone, chronic pain syndrome, CAD, PAD, atrial fibrillation presented with lethargy, anorexia, shortness of breath and found to have influenza-pulmonary consulted
for influenza/shortness of breath 01/05/2025.
Sepsis
Hypoxemic respiratory failure
Influenza A
Leukocytosis
Mild hyperglycemia
Mild hyponatremia
Hypokalemia
Mildly elevated troponin 0.14
Conditions present prior to admission:
SLE on chronic prednisone.
Chronic pain syndrome/opiate dependence.
BPH.
PAF.
CAD/stent.
PAD/bilateral AKA's.
Hypertension.
Hyperlipidemia.
Former smoker.
Lumbar fusion.
Plan
Respiratory decompensation likely due to influenza and probable community-acquired pneumonia-deteriorating and if remains full code critical and likely will need to be transferred to intensive care
Supplemental oxygen as needed
Patient now full DNR
Mucolytic's
Continue prednisone 15 mg daily for underlying SLE-consider intravenous high-dose steroids if deteriorates
Cultures reviewed
Empiric antibiotics-ceftriaxone and doxycycline-Now discontinued as on comfort care
Tamiflu 75 mg twice daily
Adjust antibiotics according to cultures
Follow leukocytosis
Morphine drip initiated
Prednisone 15 mg daily and Plaquenil continues for lupus discontinued
Monitor rhythm-discontinue
Amiodarone continues-discontinued
DVT prophylaxis-on warfarin-follow INR
Nutrition
Early mobilization
Outpatient pulmonary follow-up to ensure pneumonia clearing
The patient has been transition to hospice/comfort care-pulmonary will sign off
Reviewed the patient's pertinent medical records including radiographs, microbiology, laboratory evaluations, and discussion with primary team, consultants, pharmacy, nutrition, physical therapy, case management, charge nurse, critical care
nursing, and respiratory therapy.
Diagnostic data:
Chest x-ray 03/04/2023-bibasilar pneumonia
Chest x-ray 06/15/2023-no pneumothorax, no superimposed pneumonia or CHF
Chest x-ray 01/04/2025-mild posterior left lower lobe pneumonia
Left upper extremity ultrasound 06/09/2023-no evidence for DVT of the left upper extremity
Subjective Data
-
Date of Service:
Date of Service: January 06, 2025
Chief Complaint: Pulmonary Follow Up and Dyspnea Follow Up
Subjective:
Resting comfortably
Review of Systems
General: Other (Per HPI)
Objective Data
Data Reviewed
Vital Signs / I&O:
Vital Signs
Temp Pulse Resp BP Pulse Ox
99.3 F 90 40 105/55 95
01/06/25 08:14 01/06/25 08:14 01/06/25 08:14 01/06/25 08:14 01/06/25 08:14
SaO2: 95
Nasal Cannula flow liters per minute: 2
Physical Exam
General: Respiratory Distress (n) and Comfortable
HEENT: Normocephalic and Anicteric
Cardiovascular: Regular Rhythm
Respiratory: Wheeze (n), Non-Labored Respirations and Accessory Resp Muscle Use (n)
GI: Soft and Non Distended
Neurology: Lethargic
Skin: Warm and Good Color
Labs/Micro/Reports
Lab Data
01/05/25 09:04
01/05/25 13:05
Laboratory Results
01/05/25
16:10
pH 7.37
pCO2 23 L
pO2 46 L*
HCO3 13.3 L*
O2 Delivery Level
Microbiology
01/05/25 13:05 Nose MRSA Screen - Final
No Methicillin Resistant Staphylococcus aureus isolated.
01/05/25 13:05 Blood/Venous Blood Culture - Preliminary
No Growth in 24 hours- Final report to follow
01/05/25 11:23 Blood/Venous Blood Culture - Preliminary
No Growth in 24 hours- Final report to follow
01/04/25 17:44 Nasal Swab Influenza Types A & B (E[facility]ON) - Final
Influenza A Positive, NAAT
--- NOTE | 2025-01-06 14:23 | PTCARENOTE ---
Addendum entered by Karen Jones RN 01/06/25 16:03:
Report given. Pt sent to [address] [place] [address] with Morphine gtt and taken by Jonathan LAMAR.
Original Note:
Patient to be transferred to [address] [place] [address]. Family aware. Awaiting call back to [address] [place] [address] WILLARD Hussein.
[2025-01-06 15:54] VITALS: BP 123/74
[2025-01-06] MEDS: MORPHINE SULFATE 4 MG IV ×3 (16:40→20:43)
[2025-01-06 20:17] VITALS: BP 180/107
[2025-01-06 23:15] VITALS: BMI 23.5
--- NOTE | 2025-01-06 23:29 | PTCARENOTE ---
Pt assessed as per work list flow sheet. Family came out of room to request PRN doses of meds for pt. Pt given PRN morphine and ativan as ordered. Later on Robinul was provided. Pt's family requested not to do VS or turn pt. Will continue to monitor.
[2025-01-07] MEDS: ROBINUL 0.2 MG IV (01:23)
--- NOTE | 2025-01-07 03:49 | W.PN.DEATH ---
Pronouncement of
-
Called to see patient to pronounce.
No spontaneous heart tones or respirations noted.
Patient not responsive to verbal stimuli.
Patient is pronounced .
Time of : 03:14
Date of : 01/07/25
Cause of : sepsis , influenza A
Family Notified: Yes (multiple family members present)
--- NOTE | 2025-01-07 04:30 | PTCARENOTE ---
Called by family to assist when copious thick asif secretions were noted emanating from the R side of the pts mouth. Pt sx. Went to retrieve ativan for the pt to alleviate respiratory discomfort, (pt was noted using accessory muscles) and upon return
to the room it was noted that the pt had ceased breathing. Apical pulse was not noted on auscultation. Covering MEDICAL SUPERVISOR called who pronounced the pt @ 0314hrs. Allowed family time with the pt. Morphine gtt stopped and remainder wasted. Ativan that was
pulled was wasted. [facility] to be called and the body will be prepared and sent to the morgue.
--- NOTE | 2025-01-07 05:14 | PTCARENOTE ---
PICC line removed as per protocol Dresses with 2x2 gauze.
== END 2025-01-07 03:14 | disposition expired | DRG 871 ==
LOC: 2 NORTH 21:09
PROVIDERS: Emergency Medicine; Physician Assistant Medical; ADMITTING PHYSICIAN Internal Medicine; ATTENDING PHYSICIAN Internal Medicine; CONSULT PHYSICIAN Internal Medicine Cardiovascular Disease; CONSULT PHYSICIAN Internal Medicine Critical Care Medicine; CONSULT PHYSICIAN Internal Medicine Infectious Disease; EMERGENCY PHYSICIAN Student in an Organized Health Care Education/Training Program; FAMILY PHYSICIAN Family Medicine
DX: A41.89 Other specified sepsis (principal); J10.00 Influenza due to other identified influenza virus with unspecified type of pneumonia; J96.01 Acute respiratory failure with hypoxia; J15.9 Unspecified bacterial pneumonia; E87.1 Hypo-osmolality and hyponatremia; I5A Non-ischemic myocardial injury (non-traumatic); F11.20 Opioid dependence, uncomplicated; D84.821 Immunodeficiency due to drugs; Z51.5 Encounter for palliative care; Z66 Do not resuscitate; I48.0 Paroxysmal atrial fibrillation; E87.6 Hypokalemia; D69.6 Thrombocytopenia, unspecified; Z79.52 Long term (current) use of systemic steroids; G89.4 Chronic pain syndrome; N40.0 Benign prostatic hyperplasia without lower urinary tract symptoms; I25.10 Atherosclerotic heart disease of native coronary artery without angina pectoris; Z95.5 Presence of coronary angioplasty implant and graft; I73.9 Peripheral vascular disease, unspecified; Z89.611 Acquired absence of right leg above knee; Z89.612 Acquired absence of left leg above knee; I10 Essential (primary) hypertension; E78.00 Pure hypercholesterolemia, unspecified; Z87.891 Personal history of nicotine dependence; M81.0 Age-related osteoporosis without current pathological fracture; Z79.01 Long term (current) use of anticoagulants; Z95.1 Presence of aortocoronary bypass graft; Z82.49 Family history of ischemic heart disease and other diseases of the circulatory system; Z79.83 Long term (current) use of bisphosphonates; Z79.899 Other long term (current) drug therapy; Z11.52 Encounter for screening for COVID-19
CPT/HCPCS: 36600; 71045; 71046; 80048; 80053; 82805; 82962; 83605; 83690; 83880; 84484; 85025; 85027; 85610; 87040; 87070; 87502; 87811; 93005; 96360; 99285